=== PATIENT | male | born 1950 | race Caucasian/White ===

== ENCOUNTER → 2020-08-23 | Outpatient (CLI) | payer OTHER ==
[~2020-08-23] MED LIST: ASPIRIN 325MG325 MG PO; HABITROL 21 MG P1 EA TOP; NITROSTAT0.4 MG SL; PRAVACHOL20 MG PO; ZESTORETIC 20-1 EACH PO; ZOLOFT100 MG PO
== END ==
LOC: HEART CORB 09:00
DX: R53.83 Other fatigue (principal); I48.91 Unspecified atrial fibrillation; R60.0 Localized edema; I07.1 Rheumatic tricuspid insufficiency; I37.1 Nonrheumatic pulmonary valve insufficiency
CPT/HCPCS: 93306